=== PATIENT | female | born 1985 | race Caucasian/White ===

== ENCOUNTER 2017-05-21 21:19 | Emergency (ER) | payer SELFPAY ==
[~2017-05-21] VITALS: Ht 152.4 cm; Wt 81.0 kg
[2017-05-21 21:24] VITALS: Ht 152.4 cm; Wt 81.0 kg
== END 2017-05-22 04:54 | disposition left against medical advice (07) ==
LOC: FTE 21:19
DX: Z53.21 Procedure and treatment not carried out due to patient leaving prior to being seen by health care provider (principal)

== ENCOUNTER 2018-02-10 10:27 | Emergency (ER) | END 2018-02-10 12:12 | disposition home or self-care (01) ==

== ENCOUNTER 2018-02-15 22:56 | Emergency (ER) | END 2018-02-16 03:05 | disposition home or self-care (01) ==

== ENCOUNTER 2019-05-02 18:25 | Emergency (ER) | payer MEDICAID ==
[~2019-05-02] VITALS: Ht 149.9 cm; Wt 84.7 kg
[~2019-05-02 18:25] MED LIST: ACET500C5 PO; FAMO-96 PO; IBUP-1542 PO; TRAM50TA2 PO
[2019-05-02 18:37] VITALS: Ht 149.9 cm; Wt 84.7 kg
[2019-05-02] MEDS ORDERED: FAMOTIDINE 20 MG TAB PO ONE (19:30)
[2019-05-02] MEDS ORDERED: ACETAMINOPHEN 325 MG TAB PO ONE (19:30)
--- NOTE | 2019-05-02 21:17 | ERD ---
ER Documentation Chief Complaint Chief Complaint left upper pressure abd pain,6 weeks HPI 34-year-old female is approximately 6 weeks by dates. Complains of left upper abdominal pain which is intermittent. She also has mild right mid abdominal pain. Denies vaginal bleeding. She may have mild dysuria for the last week as well. She denies any fevers, vomiting, bleeding. She is a G3 para 2. ROS All systems reviewed and are negative except as per history of present illness. Medications Home Meds Active Scripts Acetaminophen* (Tylophen*) 500 Mg Capsule, 1 CAP PO Q6H PRN for PAIN AND OR ELEVATED TEMP, #15 CAP Prov:JAIR LYLES MD 05/02/19 Tramadol HCl (Tramadol HCl) 50 Mg Tablet, 50 MG PO Q6, #20 TAB Prov:DENILSON LU NP 02/16/18 Ibuprofen* (Motrin*) 600 Mg Tab, 600 MG PO Q6H PRN for PAIN AND OR ELEVATED TEMP, #30 TAB Prov:DENILSON LU NP 02/16/18 Ibuprofen* (Motrin*) 600 Mg Tab, 600 MG PO Q6, #20 TAB Prov:JAIR LYLES MD 02/10/18 Allergies Allergies: Coded Allergies: No Known Drug Allergy (Verified Allergy, Unknown, 02/10/18) PMhx/Soc History of Surgery: Yes () Anesthesia Reaction: No Hx Neurological Disorder: No Hx Respiratory Disorders: No Hx Cardiac Disorders: No Hx Psychiatric Problems: No Hx Miscellaneous Medical Probl: No Hx Alcohol Use: No Hx Substance Use: No Hx Tobacco Use: No Smoking Status: Never smoker FmHx Family History: diabetes Physical Exam Vitals Vital Signs Date Temp Pulse Resp B/P (MAP) Pulse Ox O2 O2 Flow FiO2 Time Delivery Rate 05/02/19 97.8 70 18 138/78 100 18:37 (98) Physical Exam Const: No acute distress Head: Atraumatic Eyes: Normal Conjunctiva ENT: Normal External Ears, Nose and Mouth. Neck: Full range of motion. No meningismus. Resp: Clear to auscultation bilaterally Cardio: Regular rate and rhythm, no murmurs Abd: Soft, non tender, non distended. Normal bowel sounds Skin: No petechiae or rashes Back: No midline or flank tenderness Ext: No cyanosis, or edema Neur: Awake and alert Psych: Normal Mood and Affect Results 24 hrs Laboratory Tests Test 05/02/19 19:10 Urine Color YELLOW Urine Clarity SLIGHTLY CLOUDY Urine pH 6.0 Urine Specific Winnie 1.012 Urine Ketones NEGATIVE mg/dL Urine Nitrite NEGATIVE mg/dL Urine Bilirubin NEGATIVE mg/dL Urine Urobilinogen NEGATIVE mg/dL Urine Leukocyte Esterase NEGATIVE Yelena/ul Urine Microscopic RBC 0 /HPF Urine Microscopic WBC 1 /HPF Urine Squamous Epithelial Cells FEW /HPF Urine Bacteria FEW /HPF Urine Hemoglobin NEGATIVE mg/dL Urine Glucose NEGATIVE mg/dL Urine Total Protein NEGATIVE mg/dl Current Medications Medications Dose Sig/Xiao Start Time Status Last (Trade) Ordered Route PRN Stop Time Admin Dose Reason Admin 650 mg ONCE ONCE 05/02/19 DC 05/02/19 Acetaminophen PO 19:30 19:32 (Tylenol 05/02/19 19:31 Tab) Famotidine 20 mg ONCE ONCE 05/02/19 DC 05/02/19 (Pepcid) PO 19:30 19:32 05/02/19 19:31 Procedures/MDM Pelvic ultrasound shows approximate 6-week intrauterine without acute abnormalities. Right ovary is not visualized although patient has no pain in that area. Urine shows no acute abnormalities. Patient presents with intermittent upper abdominal pain associated with early . Current signs or symptoms do not suggest torsion, ectopic , appendicitis, surgical abdomen. Patient is well-appearing and ambulatory. She will be treated with further observation at home, primary care follow-up, Tylenol, return precautions for bleeding, fevers, vomiting, worsening pain, new worsening symptoms with primary care doctor. The patient was stable with no new complaints during the ER course. Clinically, there is no current evidence to suggest meningitis, sepsis, acute abdomen, pneumonia, stroke, acute coronary syndrome, pulmonary embolism, aortic dissection or any other emergent condition appearing to require further evaluation or hospitalization. Patient counseled regarding my diagnostic impression and care plan. Prior to discharge all questions answered. Pt agrees with treatment plan and understands strict return precautions. Pt is instructed to follow up with primary care provider within 24-48 hours. Precautionary instructions provided including instructions to return to the ER if not improving or for any worsening or changing symptoms or concerns. Disclaimer: Inadvertent spelling and grammatical errors are likely due to EHR /dictation software use and do not reflect on the overall quality of patient care. Also, please note that the electronic time recorded on this note does not necessarily reflect the actual time of the patient encounter. Departure Diagnosis: Primary Impression: Abdominal pain Abdominal location: left upper quadrant Qualified Codes: R10.12 - Left upper quadrant pain Condition: Stable Patient Instructions: Abdominal Pain, Early Referrals: NO PRIMARY,CARE PHYSICIAN (PCP) Additional Instructions: Examines normal hoy. Cheque otro vez con posadas doctor primario en el proximo richard or regresa para mas o nueva simptomas- YOLA JUNIOR, SIERRAEVA SIMPTOMAS.. JAIR LYLES MD May 02, 2019 21:17
[2019-05-02 21:29] VITALS: BP 136/66; PULSE 17; RESP 14
== END 2019-05-02 21:29 | disposition home or self-care (01) ==
LOC: FTE 18:25
DX: O26.891 Other specified pregnancy related conditions, first trimester (principal); R10.12 Left upper quadrant pain
CPT/HCPCS: 36415; 76801; 76817; 81001; Z7502; Z7610; 81003